=== PATIENT | female | born 1995 | race Hispanic/Latino ===

== ENCOUNTER 2020-11-05 09:23 | Outpatient (CLI) | payer OTHER ==
[2020-11-05 18:44] LABS: SARS-CoV-2 PCR by NAA Not Detected (NotDetected)
== END 2020-11-05 09:24 | disposition home or self-care (01) ==
LOC: CSHLAB 09:23
PROVIDERS: ATTEND Student in an Organized Health Care Education/Training Program
DX: Z20.822 Contact with and (suspected) exposure to COVID-19 (principal)
CPT/HCPCS: 87635; U0003; U0005

== ENCOUNTER 2020-11-05 13:56 | Day surgery (SDC) | payer OTHER, SELFPAY ==
[2020-11-05] MEDS ORDERED: hydrALAZINE 20 MG/ML VIAL SLOW IVP PRN (15:37)
== END 2020-11-05 18:19 | disposition home or self-care (01) ==
LOC: CSHLD/OP 13:56
PROVIDERS: ATTEND Obstetrics & Gynecology
DX: O99.891 Other specified diseases and conditions complicating pregnancy (principal); R03.0 Elevated blood-pressure reading, without diagnosis of hypertension; O99.013 Anemia complicating pregnancy, third trimester; D64.9 Anemia, unspecified; O99.213 Obesity complicating pregnancy, third trimester; E66.9 Obesity, unspecified; O09.213 Supervision of pregnancy with history of pre-term labor, third trimester; Z3A.36 36 weeks gestation of pregnancy; Z88.1 Allergy status to other antibiotic agents
CPT/HCPCS: 99282

== ENCOUNTER 2023-07-28 18:20 | Inpatient (IN) | payer MEDICAID, OTHER, SELFPAY ==
[2023-07-28 19:10] VITALS: BMI 30.7
[2023-07-28] MEDS ORDERED: hydrALAZINE 20 MG/ML VIAL SLOW IVP PRN ×2 (19:51→21:12)
[2023-07-28] MEDS: Lactated Ringer's 1,000 ML IV SCH (20:20)
[2023-07-28 20:42] LABS: #Monocytes 0.2 10x3/uL (0.0-1.1); #Neutrophils 4.2 10x3/uL (1.5-8.4); %Basophils 0.5 % (0.0-2.0); %Eosinophils 0.3 % (0.0-6.0); %Lymphocytes 27.8 % (18.0-47.0); %Monocytes 3.4 % (0.0-10.0); %Neutrophils 67.7 % (40.0-75.0); Hematocrit 33.8 % (34.9-44.5); Hemoglobin 11.7 g/dL (12.0-15.5); Mean Corpuscular HGB CONC 34.6 g/dL (32.0-36.0); Mean Corpuscular Hemoglobin 29.4 pg (27.0-33.0); Mean Corpuscular Volume 84.9 fl (81.6-98.3); Mean Platelet Volume 12.8 fl (7.4-10.4); Platelet Count 225 10x3/uL (150-450); RBC Distribution Width 12.7 % (11.5-14.5); Red Blood Cell (RBC) Count 3.98 10x6/uL (3.90-5.03); White Blood Cell (WBC) Count 6.2 10x3/uL (3.5-10.5)
[2023-07-28 20:51] LABS: ALT (SGPT) 46 U/L (8-55); AST (SGOT) 33 U/L (5-34); Albumin 3.2 g/dL (3.5-5.0); Alkaline Phosphatase 425 U/L (40-110); Anion Gap 14 mmol/L (10-20); BUN (Urea Nitrogen) 7 mg/dL (7.0-18.7); Bilirubin, Total 1.1 mg/dL (0.2-1.2); Calc. Creatinine Clearance 172 mL/min (70-130); Calcium 8.8 mg/dL (7.8-10.44); Carbon Dioxide 19 mmol/L (22-29); Chloride 106 mmol/L (98-107); Estimated GFR 126; Globulin 4.2 g/dL (2.4-3.5); Glucose 79 mg/dL (70-105); Potassium 4.2 mmol/L (3.5-5.1); Protein, Total 7.4 g/dL (6.0-8.3); Sodium 135 mmol/L (136-145)
[2023-07-28] MEDS ORDERED: Misoprostol 200 MCG TAB PR PRN (21:12)
[2023-07-28] MEDS ORDERED: Carboprost 250 MCG/ML AMP IM PRN (21:12)
[2023-07-28] MEDS ORDERED: Diphenoxylate HCl/Atropine Tablet PO PRN (21:12)
[2023-07-28] MEDS ORDERED: Ondansetron PF 4 MG/2 ML Vial IVP PRN (21:12)
[2023-07-28] MEDS ORDERED: Docusate 100 MG CAP PO PRN (21:12)
[2023-07-28] MEDS ORDERED: Methylergonovine 0.2 MG/ML VIAL IM PRN (21:12)
[2023-07-28] MEDS ORDERED: Promethazine HCl 25 MG/ML VIAL IM PRN (21:12)
[2023-07-28] MEDS ORDERED: Tranexamic Acid 1,000 MG/10 ML VIAL IVP PRN (21:12)
[2023-07-28] MEDS ORDERED: Lidocaine 1% (PF) 30 ML VIAL SC PRN (21:12)
[2023-07-28] MEDS ORDERED: Oxytocin 30 units/NS 500 ML 500 ML IV SCH ×2 (21:15)
[2023-07-28 22:23] LABS: Hematocrit 32.3 % (34.9-44.5); Hemoglobin 11.3 g/dL (12.0-15.5); Mean Corpuscular Volume 85.7 fl (81.6-98.3); Platelet Count 200 10x3/uL (150-450); RBC Distribution Width 12.7 % (11.5-14.5); Red Blood Cell (RBC) Count 3.77 10x6/uL (3.90-5.03); White Blood Cell (WBC) Count 6.3 10x3/uL (3.5-10.5)
[2023-07-28 22:26] LABS: Amphetamine Not Detected (NotDetected); Barbiturates Screen Not Detected (NotDetected); Benzodiazepine Screen Not Detected (NotDetected); Cocaine Metabolite Screen Not Detected (NotDetected); Methadone Not Detected (NotDetected); Methamphetamine Not Detected (NotDetected); Opiate Screen Not Detected (NotDetected); Oxycodone Screen Not Detected (NotDetected); Phencyclidine (PCP) Not Detected (NotDetected); THC/Cannabinoid Screen Not Detected (NotDetected); Tricyclic Screen Not Detected (NotDetected)
[2023-07-28 22:41] LABS: Creatinine, Urine 82.09 mg/dL (47-110); Protein, Urine Random Quant Less than 10 mg/dL (1-14)
[2023-07-28 22:57] LABS: Hep B Surf Ag - L&D Non-Reactive S/CO (NonReactive)
[2023-07-28 23:22] LABS: Syphilis Antibody Nonreactive (Nonreactive); Syphilis Antibody Index 0.08 S/CO (<1.00 Non-Reactive)
[2023-07-29] MEDS ORDERED: fentaNYL/Ropivacaine Epidural 100 ML ONE (00:52)
[2023-07-29] MEDS: Lactated Ringer's 1,000 ML IV SCH (01:36)
[2023-07-29] MEDS ORDERED: Naloxone HCl 0.4 mg/ml Vial IVP PRN ×2 (01:38)
[2023-07-29] MEDS ORDERED: Moisturizing Cream (Eucerin) 113 GM JAR TOP PRN (01:38)
[2023-07-29] MEDS ORDERED: Promethazine HCl 25 MG/ML VIAL IM PRN (01:38)
[2023-07-29] MEDS ORDERED: Lactated Ringer's 500 ML IV PRN (01:38)
[2023-07-29] MEDS ORDERED: diphenhydrAMINE 50 MG/ML VIAL IVP PRN (01:38)
[2023-07-29] MEDS ORDERED: ePHEDrine Sulfate 50 MG/10 ML VIAL SLOW IVP PRN (01:38)
[2023-07-29] MEDS ORDERED: Ondansetron PF 4 MG/2 ML Vial IVP PRN (01:38)
[2023-07-29] MEDS ORDERED: fentaNYL 2 mcg/Ropivacaine 0.2% Epidural 100 ML CADD EPIDURAL SCH (01:45)
[2023-07-29] MEDS ORDERED: Communication Order-Pharmacy FS SCH (01:45)
[2023-07-29] MEDS ORDERED: Milk Of Magnesia 30 ML UDCUP PO PRN (04:54)
[2023-07-29] MEDS ORDERED: Preparation H Ointment 28 GM TUBE PR PRN (04:54)
[2023-07-29] MEDS ORDERED: diphenhydrAMINE 25 MG CAP PO PRN (04:54)
[2023-07-29] MEDS ORDERED: Boostrix 0.5 ML (Tdap) VIAL (>/=7 yrs of age) IM ONE (04:54)
[2023-07-29] MEDS ORDERED: Bisacodyl 10 MG SUPP PR PRN (04:54)
[2023-07-29] MEDS ORDERED: hydrALAZINE 20 MG/ML VIAL SLOW IVP PRN (04:54)
[2023-07-29] MEDS ORDERED: Benzocaine-Menthol 82.5 ML CAN TOP PRN (04:54)
[2023-07-29] MEDS ORDERED: Lanolin Ointment 7 GM TUBE TOP PRN (04:54)
[2023-07-29] MEDS: Ibuprofen 800 MG TAB PO SCH ×3 (05:36→21:48)
[2023-07-29] MEDS: Docusate 100 MG CAP PO SCH ×2 (09:15→21:49)
[2023-07-29] MEDS: Prenatal Vitamin 1 TAB PO SCH (09:15)
[2023-07-29] MEDS: Ferrous Sulfate 325 MG TAB PO SCH ×2 (10:42→19:33)
[2023-07-29] MEDS: Acetaminophen 325 MG TAB PO PRN ×2 (10:43→20:03)
[2023-07-29 13:06] LABS: HBSAB Concentration Less than 8.00 mIU/mL; Hep B Surf AB Non-Reactive (NonReactive)
[2023-07-29] MEDS ORDERED: Bupivacaine 0.25% HCL 30 ML VIAL ONE (18:58)
[2023-07-29 19:00] LABS: HIV (1/2) Antibody/Antigen Non-Reactive (NonReactive); HIV 1/2 INDEX 0.09 S/CO (<1.00)
[2023-07-30] MEDS: Acetaminophen 325 MG TAB PO PRN (00:51)
[2023-07-30] MEDS ORDERED: Fluconazole 100 MG TAB PO SCH (04:00)
[2023-07-30 04:54] LABS: Chlamydia by PCR, Vaginal Swab Not Detected (NotDetected); GC by PCR, Vaginal Swab Not Detected (NotDetected)
[2023-07-30] MEDS: Ibuprofen 800 MG TAB PO SCH ×3 (05:26→22:36)
[2023-07-30] MEDS: metroNIDAZOLE 500 MG TAB PO SCH ×2 (09:04→22:36)
[2023-07-30] MEDS: Prenatal Vitamin 1 TAB PO SCH (09:04)
[2023-07-30] MEDS: Docusate 100 MG CAP PO SCH ×2 (09:04→22:36)
[2023-07-30] MEDS: Ferrous Sulfate 325 MG TAB PO SCH ×2 (12:04→19:27)
[2023-07-31] MEDS: Ibuprofen 800 MG TAB PO SCH (05:15)
[2023-07-31] MEDS: Ferrous Sulfate 325 MG TAB PO SCH (07:07)
[2023-07-31 08:01] VITALS: BP 126/81; TEMP 98.1
[2023-07-31] MEDS: Docusate 100 MG CAP PO SCH (08:02)
[2023-07-31] MEDS: Prenatal Vitamin 1 TAB PO SCH (08:02)
[2023-07-31] MEDS: metroNIDAZOLE 500 MG TAB PO SCH (08:02)
== END 2023-07-31 11:45 | disposition home or self-care (01) | DRG 807 ==
LOC: CSHLD/OP 18:20 → CSHLD 21:12 → CSHPP 07-29 08:15
PROVIDERS: ADMIT Obstetrics & Gynecology; ATTEND Obstetrics & Gynecology
PROC: 10E0XZZ Delivery of Products of Conception, External Approach (ICD-10-PCS; principal; 2023-07-29)
PROC: 0KQM0ZZ Repair Perineum Muscle, Open Approach (ICD-10-PCS; 2023-07-29)
PROC: 10907ZC Drainage of Amniotic Fluid, Therapeutic from Products of Conception, Via Natural or Artificial Opening (ICD-10-PCS; 2023-07-29)
PROC: 3E033VJ Introduction of Other Hormone into Peripheral Vein, Percutaneous Approach (ICD-10-PCS; 2023-07-29)
PROC: 3E033XZ Introduction of Vasopressor into Peripheral Vein, Percutaneous Approach (ICD-10-PCS; 2023-07-29)
DX: O69.81X0 Labor and delivery complicated by cord around neck, without compression, not applicable or unspecified (principal); Z37.0 Single live birth; O70.1 Second degree perineal laceration during delivery; O26.893 Other specified pregnancy related conditions, third trimester; Z3A.37 37 weeks gestation of pregnancy; O99.892 Other specified diseases and conditions complicating childbirth; R03.0 Elevated blood-pressure reading, without diagnosis of hypertension
CPT/HCPCS: 36415; 51702; 76805; 80053; 80306; 82239; 82570; 84156; 85025; 86706; 86762; 86780; 86850; 86900; 86901; 87340; 87389; 87480; 87491; 87510; 87591; 87653; 87660; 99285; J0665; J2590; J7120